=== PATIENT | male | born 1965 | race Caucasian/White ===

== ENCOUNTER 2016-07-09 04:21 | Inpatient (IN) | payer OTHER ==
[~2016-07-09] VITALS: Ht 180.3 cm; Wt 167.6 kg
[~2016-07-09 04:21] MED LIST: LASIX10 MG PO
[2016-07-09 05:05] LABS: MCH 29.9 PG (29.0-34.0); MCHC 33.8 G/DL (30.0-36.0); MCV 88.3 FL (86-99); MEAN PLAT.VOLUME 11.1 uM^3 (9.0-12.4); PLATELET COUNT 237 K/uL (156-360); RBC DIS.WIDTH-CV 12.9 % (11.8-14.6); RBC DIS.WIDTH-SD 41.7 % (39-53); RED BLOOD COUNT 5.32 M/uL (4.00-5.50); WHITE BLOOD COUNT 13.5 K/uL (4.1-10.2)
[2016-07-09 05:35] LABS: CHLORIDE 105 mEq/L (99-109); POTASSIUM 4.4 mEq/L (3.7-5.4); SODIUM 136 mEq/L (136-147)
[2016-07-09 05:37] LABS: GLUCOSE 135 mg/dL (70-99)
[2016-07-09 05:38] LABS: ANION GAP 11 MEQ/L (2-14)
[2016-07-09 05:39] LABS: TOTAL BILIRUBIN 0.4 mg/dL (0.0-1.0)
[2016-07-09 05:40] LABS: ALKALINE PHOSPHATASE 72 IU/L (3-129)
[2016-07-09 05:41] LABS: GFR ESTIMATE (CALCULATED) > 59 mL/min/
[2016-07-09 05:42] LABS: UREA NITROGEN (BUN) 11 mg/dL (9-23)
[2016-07-09] MEDS ORDERED: AMLODIPINE-OLM1 EAC2 PO (06:41)
[2016-07-09] MEDS ORDERED: GLIPIZIDE10 MG PO (06:42)
[2016-07-09] MEDS ORDERED: GLUCOPHAGE1000 MG PO (06:42)
[2016-07-09 06:50] LABS: ADD MIUA? YES; BILIRUBIN NEGATIVE; BLOOD SMALL; COLOR YELLOW ((YELLOW)); GLUCOSE (STRIP) NEGATIVE; KETONES 5; LEUKOCYTES SMALL; NITRITE NEGATIVE; PROTEIN (STRIP) NEGATIVE; SPECIFIC GRAVITY 1.025 (1.000-1.030); UROBILINOGEN 0.2 MG/DL (0.2-1.0)
[2016-07-09 07:01] LABS: LIPASE 56 U/L (1.0-51.0)
[2016-07-09 07:03] LABS: BACTERIA NONE SEEN /HPF; EPITHELIAL CELLS RARE /HPF; MUCUS TRACE /LPF; UCUL ADDED? NO; WHITE BLOOD CELLS 15-20 /HPF (0-5)
[2016-07-09] MEDS ORDERED: GLIMEPIRIDE2 MG PO (12:54)
[2016-07-09] MEDS ORDERED: CHROMAX PO (12:57)
[2016-07-09] MEDS ORDERED: AMLODIPINE-BEN1 EAC4 PO (13:00)
[2016-07-09 13:17] LABS: TRIGLYCERIDES 124 MG/DL (Normal: <150)
[2016-07-09 14:45] VITALS: BP 139/75
[2016-07-09 16:51] LABS: POINT-OF-CARE METER ID UU13113698
[2016-07-09 21:01] VITALS: BP 126/80
[2016-07-09 21:06] LABS: POINT-OF-CARE METER ID UU13113698
[2016-07-10 00:16] VITALS: BP 139/89
[2016-07-10 03:35] VITALS: BP 151/78
[2016-07-10 04:32] VITALS: BP 130/91
[2016-07-10 07:29] LABS: HEMATOCRIT 40.6 % (38.0-50.0); MCH 29.9 PG (29.0-34.0); MCHC 33.3 G/DL (30.0-36.0); MCV 89.8 FL (86-99); RBC DIS.WIDTH-CV 12.8 % (11.8-14.6); RED BLOOD COUNT 4.52 M/uL (4.00-5.50)
[2016-07-10 07:49] LABS: WHITE BLOOD COUNT 8.2 K/uL (4.1-10.2)
[2016-07-10 08:10] VITALS: BP 139/74
[2016-07-10 08:42] LABS: PLAT.SUFFICIENCY ADEQUATE; PLATELET CLUMPS PRESENT - PLATELET COUNT APPEARS ADQ.; PLATELET COUNT UNABLE TO REPORT K/uL (156-360)
[2016-07-10 09:12] LABS: POINT-OF-CARE METER ID UU13113807
[2016-07-10 12:30] VITALS: BP 133/86
[2016-07-10 14:18] LABS: POINT-OF-CARE METER ID UU13113807
[2016-07-10 17:20] LABS: POINT-OF-CARE METER ID UU13113807
[2016-07-10 20:00] VITALS: BP 161/74
[2016-07-10 21:26] LABS: POINT-OF-CARE METER ID UU13113807; POINT-OF-CARE USER ID 608261316
[2016-07-11 00:47] VITALS: BP 127/77
[2016-07-11 04:00] VITALS: BP 127/82
[2016-07-11 07:35] VITALS: BP 148/80
[2016-07-11 08:44] LABS: POINT-OF-CARE METER ID UU13113807; POINT-OF-CARE USER ID 606021404
== END 2016-07-11 12:39 | disposition home or self-care (01) | DRG 439 ==
LOC: EME 04:21 → EDOF 10:30 → 4SOUTH 10:30
PROVIDERS: Hospitalist; Internal Medicine
DX: K85.90 Acute pancreatitis without necrosis or infection, unspecified (principal); N39.0 Urinary tract infection, site not specified; E11.9 Type 2 diabetes mellitus without complications; I10 Essential (primary) hypertension; E66.01 Morbid (severe) obesity due to excess calories; Z68.43 Body mass index [BMI] 50.0-59.9, adult; K76.0 Fatty (change of) liver, not elsewhere classified; R16.0 Hepatomegaly, not elsewhere classified; G89.29 Other chronic pain; M54.9 Dorsalgia, unspecified; F10.10 Alcohol abuse, uncomplicated; Z79.84 Long term (current) use of oral hypoglycemic drugs; Z87.442 Personal history of urinary calculi; Z87.891 Personal history of nicotine dependence
CPT/HCPCS: 74176; 76705; 80053; 81003; 82787 90; 82948; 83690; 84478; 85027; 86038; 86140; 93005; 99281; 99285; J0696; J1650; J1815; J2270; J7030; J7050